=== PATIENT | female | born 1985 | race Caucasian/White ===

== ENCOUNTER 2018-08-15 21:15 | Emergency (ER) | payer OTHER ==
[~2018-08-15] VITALS: Ht 157.5 cm; Wt 61.2 kg
[~2018-08-15 21:15] MED LIST: CEFADROXIL500 MG PO; MOTRIN800 MG PO; PEPCID40 MG PO; PHENERGAN25 MG PO
== END 2018-08-15 22:49 | disposition home or self-care (01) ==
LOC: ER 21:15
DX: N39.0 Urinary tract infection, site not specified (principal); R30.0 Dysuria

== ENCOUNTER 2022-05-10 20:10 | Inpatient (IN) | payer OTHER ==
[~2022-05-10] VITALS: Ht 157.5 cm; Wt 65.8 kg
== END 2022-05-15 14:02 | disposition home or self-care (01) | DRG 833 ==
LOC: OB/GYN 20:10
PROVIDERS: ADMIT Obstetrics & Gynecology Obstetrics; ATTEND Obstetrics & Gynecology Obstetrics
PROC: 4A1HXCZ Monitoring of Products of Conception, Cardiac Rate, External Approach (ICD-10-PCS; principal; 2022-05-10)
DX: O91.111 Abscess of breast associated with pregnancy, first trimester (principal); Z3A.13 13 weeks gestation of pregnancy; Z20.822 Contact with and (suspected) exposure to COVID-19

== ENCOUNTER 2022-05-15 16:18 | Outpatient (CLI) | payer OTHER | END 2022-05-15 17:45 | disposition home or self-care (01) | LOC: PRENATAL 16:18 | PROVIDERS: ATTEND Obstetrics & Gynecology Maternal & Fetal Medicine | DX: Z03.79 Encounter for other suspected maternal and fetal conditions ruled out (principal) ==

== ENCOUNTER 2022-06-10 14:33 | Emergency (ER) | payer OTHER ==
[~2022-06-10] VITALS: Ht 157.5 cm; Wt 69.9 kg
[2022-06-10] MEDS ORDERED: ZOFRAN8 MG (15:13)
== END 2022-06-10 19:56 | disposition home or self-care (01) ==
LOC: ER 14:33
DX: O99.412 Diseases of the circulatory system complicating pregnancy, second trimester (principal); Z3A.17 17 weeks gestation of pregnancy; R00.0 Tachycardia, unspecified

== ENCOUNTER 2022-07-03 10:57 | Outpatient (CLI) | payer OTHER ==
[~2022-07-03 10:57] MED LIST changes: +ZOFRAN8 MG
== END 2022-07-03 12:13 | disposition home or self-care (01) ==
LOC: PRENATAL 10:57
PROVIDERS: ATTEND Obstetrics & Gynecology Maternal & Fetal Medicine
DX: O35.0XX0 Maternal care for (suspected) central nervous system malformation in fetus, not applicable or unspecified (principal); O09.529 Supervision of elderly multigravida, unspecified trimester; O60.00 Preterm labor without delivery, unspecified trimester; O35.3XX0 Maternal care for (suspected) damage to fetus from viral disease in mother, not applicable or unspecified; Z3A.20 20 weeks gestation of pregnancy

== ENCOUNTER 2022-11-12 00:47 | Inpatient (IN) | payer OTHER ==
[~2022-11-12] VITALS: Ht 157.5 cm; Wt 83.5 kg
[~2022-11-12 00:47] MED LIST changes: +DEXAMETHAS10 MG/1 M1 IM; +DIPHENHYDR50 MG/1 M1 IJ; +IRON325 MG PO; +ONDANSETRON2 MG/1 ML IV; +PRENATAL TABLE1 EAC3 PO
== END 2022-11-16 19:08 | disposition home or self-care (01) | DRG 807 ==
LOC: LDR 00:47 → OB/GYN 11-14 08:46
PROVIDERS: ADMIT Obstetrics & Gynecology Obstetrics; ATTEND Obstetrics & Gynecology Obstetrics
PROC: 3E0P7VZ Introduction of Hormone into Female Reproductive, Via Natural or Artificial Opening (ICD-10-PCS; 2022-11-13)
PROC: 3E033VJ Introduction of Other Hormone into Peripheral Vein, Percutaneous Approach (ICD-10-PCS; 2022-11-13)
PROC: 4A1HXCZ Monitoring of Products of Conception, Cardiac Rate, External Approach (ICD-10-PCS; 2022-11-13)
PROC: 10E0XZZ Delivery of Products of Conception, External Approach (ICD-10-PCS; principal; 2022-11-14)
PROC: 30233N1 Transfusion of Nonautologous Red Blood Cells into Peripheral Vein, Percutaneous Approach (ICD-10-PCS; 2022-11-14)
DX: O72.1 Other immediate postpartum hemorrhage (principal); O67.8 Other intrapartum hemorrhage; O99.02 Anemia complicating childbirth; D50.0 Iron deficiency anemia secondary to blood loss (chronic); Z37.0 Single live birth; Z3A.39 39 weeks gestation of pregnancy; Z20.822 Contact with and (suspected) exposure to COVID-19

== ENCOUNTER 2024-06-15 12:00 | Day surgery (SDC) | payer OTHER ==
[2024-06-12 14:43] VITALS: BP 122/80
[~2024-06-15] VITALS: Ht 157.5 cm; Wt 68.9 kg
[2024-06-16] MEDS ORDERED: POVIDONE-IODINE 118 ML BOTT TOP ONE (00:13)
[2024-06-16] MEDS ORDERED: SUGAMMADEX SODIUM 200 MG/2 ML VIAL IV ONE (01:21)
[2024-06-16] MEDS ORDERED: PROMETHAZINE HCL 25 MG/ML AMPUL IM PRN (03:15)
[2024-06-16] MEDS ORDERED: MEPERIDINE HCL/PF 50 MG/ML VIAL IM PRN (03:15)
== END 2024-06-16 03:55 | disposition home or self-care (01) ==
LOC: CIR.AMB 12:00
PROVIDERS: ATTEND Obstetrics & Gynecology Obstetrics
DX: Z30.2 Encounter for sterilization (principal)